=== PATIENT | male | born 1955 | race Caucasian/White ===

== ENCOUNTER 2022-02-09 10:43 | Outpatient (CLI) | payer MEDICARE | END 2022-02-09 10:44 | disposition home or self-care (01) | LOC: CSHRAD 10:43 | PROVIDERS: ATTEND Internal Medicine Gastroenterology | DX: R13.19 Other dysphagia (principal); T17.908A Unspecified foreign body in respiratory tract, part unspecified causing other injury, initial encounter | CPT/HCPCS: 74220; 74230 ==

== ENCOUNTER 2022-03-25 12:25 | Outpatient (CLI) | payer OTHER | END 2022-03-25 12:26 | disposition home or self-care (01) | LOC: CSHCT 12:25 | PROVIDERS: ATTEND Psychiatry & Neurology Neurology | DX: G44.321 Chronic post-traumatic headache, intractable (principal); Z98.890 Other specified postprocedural states | CPT/HCPCS: 70450 ==

== ENCOUNTER 2024-06-28 12:18 | Outpatient (CLI) | payer OTHER ==
[~2024-06-28 12:18] MED LIST: Magnevist 469MG/ML 20 ML VIAL ONE
== END 2024-06-28 12:19 | disposition home or self-care (01) ==
LOC: CSHMRI 12:18
PROVIDERS: ATTEND Family Medicine
DX: R42 Dizziness and giddiness (principal); I65.01 Occlusion and stenosis of right vertebral artery; G31.9 Degenerative disease of nervous system, unspecified; I67.89 Other cerebrovascular disease
CPT/HCPCS: 36415; 70553; 76376; 82565